=== PATIENT | female | born 1980 | race Caucasian/White ===

== ENCOUNTER → 2016-11-03 | Outpatient (REF) ==
--- NOTE | 2016-11-03 14:09 | REP ---
Clinical: Pain and disability. Technique: AP, lateral, coned-down views of the lumbosacral spine. Comparison: 03/18/2014. Findings: Early advanced degenerative disc osteophyte complex at the L4-5 level includes osteophytosis, endplate sclerosis and disc space narrowing which appears to be progressive compared to prior examination. Mild degenerative disc space narrowing and endplate sclerosis at the L5-S1 level is also appreciated. No acute fracture / compression injury or subluxation. Impression: Degenerative changes primarily involving the L4-5 and L5-S1 levels. Signed by Charles Valle MD 11/03/2016 02:00 P
== END ==
LOC: M SMT 13:41
PROVIDERS: ATTEND Internal Medicine
DX: M51.36 Other intervertebral disc degeneration, lumbar region (principal)